=== PATIENT | male | born 1995 | race Caucasian/White ===

== ENCOUNTER 2020-12-20 14:16 | Inpatient (IN) | payer BC ==
[~2020-12-20] VITALS: Ht 175.3 cm; Wt 72.8 kg
[2020-12-20] VITALS (176 sets, daily range): BP systolic 125–126; BP diastolic 78–81; PULSE 98–143; TEMP 98.6–98.7; O2SAT 89–100
[2020-12-20 14:44] LABS: BASO # 0.1 (0.0-0.2); BASO % 0.3 % (0.0-2.0); GRAN % 84.8 % (42.2-75.2); HEMATOCRIT 45.1 % (42.0-52.0); HEMOGLOBIN 16.5 g/dl (13.5-18.0); LYMPH # 1.7 (1.2-3.4); MEAN CELL VOLUME 91 fl (80.0-100.0); MEAN CORPUSCULAR HEMOGLOBIN 33 pg (27.0-31.0); MEAN CORPUSCULAR HGB CONC 37 g/dl (33.0-37.0); MEAN PLATELET VOLUME 10.5 fl (7.4-10.4); MONO % 5.4 % (1.7-9.3); PLATELET COUNT 284 K/mm3 (130-400); RED BLOOD COUNT 4.97 M/mm3 (4.20-5.60); REDCELL DISTRIBUTION WIDTH-CV 11.7 % (11.5-14.5)
[2020-12-20 14:56] LABS: ALANINE AMINOTRANSFERASE 53 U/L (4-49); ALBUMIN 5.7 gm/dL (3.5-5.0); ALKALINE PHOSPHATASE 135 U/L (50-136); ANION GAP 27 mmol/L (7-16); AST,SGOT 35 U/L (15-37); BILIRUBIN,TOTAL 1.8 mg/dL (0.0-1.0); BLOOD UREA NITROGEN 33 mg/dL (9-20); CALCIUM 9.5 mg/dL (8.4-10.2); CARBON DIOXIDE 20 mmol/L (22-30); CREATININE, serum 1.37 (0.66-1.25); LIPASE 108 U/L (23-300); POTASSIUM 4.2 mmol/L (3.4-5.0); SODIUM 135 mmol/L (137-145); TOTAL PROTEIN 9.3 gm/dL (6.4-8.2)
[2020-12-20 15:12] LABS: CHLORIDE 88 mmol/L (98-107); GLUCOSE 544 mg/dL (74-106)
[2020-12-20 15:24] LABS: ACETONE,SERUM SMALL
[2020-12-20] MEDS ORDERED: TRESIBA FL200 UNIT/1 SQ (16:27)
[2020-12-20] MEDS ORDERED: NOVOLOG FLEX100 U/ML SQ (16:27)
--- NOTE | 2020-12-20 17:16 | NUR ---
RECEIVED REPORT FROM KIM CALIX IN ER. AWAITING ARRIVAL OF PT TO ICU 6.
--- NOTE | 2020-12-20 17:25 | NUR ---
PT ARRIVES TO ICU 6 VIA STRETCHER ON RA. PT TRANSFERS SELF TO ICU BED, STEADY GAIT NOTED. CALL LIGHT AND URINAL WITHIN REACH. VSS. SEE GTT FLOWSHEET.
[2020-12-20 17:29] LABS: MAGNESIUM 2.6 mg/dL (1.6-2.3); PHOSPHOROUS 5.2 mg/dL (2.5-4.5)
[2020-12-20 19:52] LABS: CALCIUM 8.7 mg/dL (8.4-10.2); CREATININE, serum 0.98 (0.66-1.25); POTASSIUM 3.3 mmol/L (3.4-5.0)
--- NOTE | 2020-12-20 20:00 | NUR ---
Assessment complete and charted. Patient having nausea. Obtained order from EM Carrero for zofran PRN Q4H. Denies needs at this time. Call light in reach.
[2020-12-20 21:49] LABS: CALCIUM 8.9 mg/dL (8.4-10.2); CREATININE, serum 0.98 (0.66-1.25); POTASSIUM 3.7 mmol/L (3.4-5.0)
[2020-12-20 23:29] LABS: CALCIUM 8.8 mg/dL (8.4-10.2); CREATININE, serum 0.95 (0.66-1.25); POTASSIUM 3.4 mmol/L (3.4-5.0)
--- NOTE | 2020-12-20 23:43 | NUR ---
Assessment complete and charted. Patient dry heaving during assessment causing tachycardia. Given PRN zofran. Pulse back to 93. Denies other needs. Call light in reach.
[2020-12-21] VITALS (378 sets, daily range): BP systolic 110–156; BP diastolic 62–100; PULSE 67–96; TEMP 97.5–98.6; O2SAT 89–100
[2020-12-21 01:38] LABS: CALCIUM 8.9 mg/dL (8.4-10.2); CREATININE, serum 0.99 (0.66-1.25); POTASSIUM 3.4 mmol/L (3.4-5.0)
[2020-12-21 01:39] LABS: COLLECTION METHOD CLEAN CATCH
[2020-12-21 01:47] LABS: MUCOUS Present /lpf; PH 6 (5-8); SQUAMOUS EPITHELIAL None Seen /hpf; URINE APPEARANCE Clear; URINE BACTERIA None Seen /hpf; URINE BILIRUBIN Negative (NEGATIVE); URINE BLOOD 1+ (NEGATIVE); URINE COLOR Yellow; URINE GLUCOSE 3+ (NEGATIVE); URINE KETONE 2+ (NEGATIVE); URINE LEUKOCYTE ESTERASE Negative (NEGATIVE); URINE NITRATE Negative (NEGATIVE); URINE PROTEIN(semi-quant) 1+ (NEGATIVE); URINE RBC 0-2 /hpf; URINE UROBILINOGEN Negative (NEGATIVE)
[2020-12-21 03:44] LABS: CALCIUM 8.8 mg/dL (8.4-10.2); CREATININE, serum 1.02 (0.66-1.25); POTASSIUM 3.5 mmol/L (3.4-5.0)
[2020-12-21 05:36] LABS: BASO # 0.1 (0.0-0.2); BASO % 0.3 % (0.0-2.0); EOS % 0.1 % (0-4.0); GRAN # 13.4 (1.4-6.5); GRAN % 79.9 % (42.2-75.2); HEMATOCRIT 40.7 % (42.0-52.0); HEMOGLOBIN 14.9 g/dl (13.5-18.0); MEAN CELL VOLUME 92 fl (80.0-100.0); MEAN CORPUSCULAR HEMOGLOBIN 34 pg (27.0-31.0); MEAN CORPUSCULAR HGB CONC 37 g/dl (33.0-37.0); MEAN PLATELET VOLUME 10.1 fl (7.4-10.4); MONO # 1.2 (0.1-0.6); MONO % 7.2 % (1.7-9.3); PLATELET COUNT 235 K/mm3 (130-400); RED BLOOD COUNT 4.44 M/mm3 (4.20-5.60); REDCELL DISTRIBUTION WIDTH-CV 11.7 % (11.5-14.5)
[2020-12-21 05:48] LABS: ALBUMIN 4.8 gm/dL (3.5-5.0); BILIRUBIN,TOTAL 1.3 mg/dL (0.0-1.0); CALCIUM 9.1 mg/dL (8.4-10.2); CREATININE, serum 0.99 (0.66-1.25); POTASSIUM 3.4 mmol/L (3.4-5.0); TOTAL PROTEIN 7.9 gm/dL (6.4-8.2)
--- NOTE | 2020-12-21 06:11 | NUR ---
Patient nauseated throughout night. Given PRN zofran and phenergan. Patient insulin gtt stopped at 0430 for a blood sugar of 80. Per Alise STRICKLAND given 5 units of levemir and continue D5 1/2 NS with 20meq of K+, allow patient to eat this AM. Patient attemping apple sauce. Denies other needs this AM. Call light in reach.
--- NOTE | 2020-12-21 07:00 | NUR ---
RECEIVED REPORT FROM KIM HUDSON. PT SLEEPING ON RA. VSS. CALL LIGHT WITHIN REACH.
--- NOTE | 2020-12-21 07:05 | NUR ---
Report given to KIM Rutledge
[2020-12-21 07:36] LABS: CALCIUM 8.4 mg/dL (8.4-10.2); CREATININE, serum 0.94 (0.66-1.25); POTASSIUM 3.7 mmol/L (3.4-5.0)
[2020-12-21 10:06] LABS: CALCIUM 8.4 mg/dL (8.4-10.2); CREATININE, serum 1.09 (0.66-1.25); POTASSIUM 3.7 mmol/L (3.4-5.0)
[2020-12-21 11:46] LABS: CALCIUM 8.4 mg/dL (8.4-10.2); CREATININE, serum 0.98 (0.66-1.25); POTASSIUM 4.1 mmol/L (3.4-5.0)
--- NOTE | 2020-12-21 11:49 | NUR ---
Body Sander met with patient to discuss discharge planning. Patient lives in [place] with a roommate and sees Dr. Vanessa Casas for primary care. Patient reports he last saw Dr. Casas in October. Patient is employed at [employer] and obtains his medications from the [facility]. Patient reports that he can afford his medications at this time. Patient does not use any DME other than his diabetic testing equipment. Patient reports independence with ADLS and plans to return home upon discharge. Patient does not have Advance Directives. Patient is not and his legal next of kin would be his parents, Jade (ph#[phone]) and Doug, who live in [place]. Discharge Plan: Home
[2020-12-21 13:34] LABS: CALCIUM 8.7 mg/dL (8.4-10.2); CREATININE, serum 0.94 (0.66-1.25); POTASSIUM 3.6 mmol/L (3.4-5.0)
--- NOTE | 2020-12-21 18:15 | NUR ---
REPORT GIVEN TO KIM SAUCEDA. PT TRANSFERRED VIA WC TO [address] ON [address]. GF ACCOMPANYING PT. ALL PERSONAL BELONGINGS SENT WITH PT.
--- NOTE | 2020-12-21 21:49 | NUR ---
Patient assessed around 1950. Patient was complaining of nausea, and given PRN Phenergan. Denies pain and and discomfort. Peripheral INT to right AC. Site without redness, warmth, swelling, and pain. Denies SOB and dyspnea. LS CTA. Respirations even and unlabored. HRR. Telemetry: sinus tachycardia. Capillary refill less than 3 seconds. Non-tenting skin turgor. BSAx4. Abdomen soft and non-tender. No edema. Voices no further questions, needs, or concerns at this time. Resting in bed with call light within reach.
[2020-12-22 04:05] VITALS: BP 116/76; PULSE 81; TEMP 98.2
--- NOTE | 2020-12-22 05:47 | NUR ---
Patient had one episode of emesis this shift, and had received PRN Phenergan. No further emesis, and has denied needing anything for nausea since. Patient has been resting in bed with call light within reach. Voices no questions, needs, or concerns at this time. Resting in bed with call light within reach.
[2020-12-22 06:50] LABS: BASO # 0.1 (0.0-0.2); BASO % 0.8 % (0.0-2.0); EOS % 0.1 % (0-4.0); GRAN % 64.3 % (42.2-75.2); HEMATOCRIT 38.4 % (42.0-52.0); HEMOGLOBIN 13.4 g/dl (13.5-18.0); LYMPH # 2.1 (1.2-3.4); LYMPH % 27.2 % (20.0-51.0); MEAN CELL VOLUME 95 fl (80.0-100.0); MEAN CORPUSCULAR HEMOGLOBIN 33 pg (27.0-31.0); MEAN CORPUSCULAR HGB CONC 35 g/dl (33.0-37.0); MEAN PLATELET VOLUME 10.7 fl (7.4-10.4); MONO # 0.6 (0.1-0.6); MONO % 7.3 % (1.7-9.3); PLATELET COUNT 176 K/mm3 (130-400); RED BLOOD COUNT 4.04 M/mm3 (4.20-5.60); REDCELL DISTRIBUTION WIDTH-CV 11.4 % (11.5-14.5)
[2020-12-22 07:09] LABS: CALCIUM 8.8 mg/dL (8.4-10.2); CREATININE, serum 0.81 (0.66-1.25); POTASSIUM 3.2 mmol/L (3.4-5.0)
[2020-12-22 08:00] VITALS: BP 137/82; PULSE 88; TEMP 97.7
--- NOTE | 2020-12-22 09:42 | NUR ---
Initial visit; Patient thanked Rotor Coil Taper for stopping. Rotor Coil Taper listened and offered God's blessings that his health continue to improve. Rotor Coil Taper wished Chucky a blessed day.
[2020-12-22 09:53] LABS: ALBUMIN 4.1 gm/dL (3.5-5.0); BILIRUBIN,TOTAL 1.5 mg/dL (0.0-1.0); TOTAL PROTEIN 6.8 gm/dL (6.4-8.2)
--- NOTE | 2020-12-22 10:30 | NUR ---
Patient has continued to have nausea this am. Nicki given. Discussed how we use the insulin sliding scale to decide the dose. Patient stated that they take 8-10 units average with each meal. Patient denies pain at this time. No other changes at this time. Call light within reach.
[2020-12-22 12:00] VITALS: BP 131/71; PULSE 87; TEMP 97.9
[2020-12-22] MEDS ORDERED: ZOFRAN ODT4 MG PO (14:09)
--- NOTE | 2020-12-22 14:54 | NUR ---
The PA notified THERON that the patient is interested in having a referral sent to [facility] for outpatient mental health services. THERON contacted admissions at [facility] twice and left voicemails to give them a referral on the patient. THERON met with the patient to update and provided him with [place]'s list of Mental Health Resources in the community, which includes [facility]'s phone number. The patient provided THERON with his phone number [phone]. THERON encouraged the patient to give [facility] a call if he does not hear from [facility] about an appointment. The patient verbalized understanding and was in agreement to the plan. The patient is to discharge back home with his roommate today, 12/22. No additional needs at this time.
[2020-12-22 16:00] VITALS: BP 127/74; PULSE 80; TEMP 98.3
--- NOTE | 2020-12-22 16:30 | NUR ---
Patient is discharging home. Discharge instructions discussed with patient. No quesitons verbalized. INT discontinued. Explained that he can call [facility] tomorrow afternoon if they don't call him because our socail worker left a message with them for [facility] for an appointment. Patient has an endocrinology appointment scheduled for next week, explained if he continues to have N/V to make an appointment with his primary doctor. No other changes at this time. Call light within reach.
== END 2020-12-22 16:30 | disposition home or self-care (01) | DRG 638 ==
LOC: COL.ER 14:16 → ICU 15:55 → SURG 12-21 18:30
PROVIDERS: Emergency Medicine; Physician Assistant; ADMIT Student in an Organized Health Care Education/Training Program
DX: E10.10 Type 1 diabetes mellitus with ketoacidosis without coma (principal); N17.9 Acute kidney failure, unspecified; F32.9 Major depressive disorder, single episode, unspecified; R19.7 Diarrhea, unspecified; R00.0 Tachycardia, unspecified; E87.6 Hypokalemia; D72.829 Elevated white blood cell count, unspecified
CPT/HCPCS: 99223-AI; 99233-AI; 99239; J1644; J1815; J2405; J2550; J3480; J7030

== ENCOUNTER 2023-11-15 18:15 | Emergency (ER) | payer OTHER ==
[~2023-11-15] VITALS: Ht 175.3 cm; Wt 77.3 kg
[~2023-11-15 18:15] MED LIST: NOVOLOG FLEX100 U/ML SQ; TRESIBA FL200 UNIT/1 SQ; ZOFRAN ODT4 MG PO
[2023-11-15 18:27] VITALS: TEMP 98.3
[2023-11-15 19:51] LABS: BASO % 0.3 % (0.0-2.0); GRAN % 87.1 % (42.2-75.2); HEMOGLOBIN 12.9 g/dl (13.5-18.0); LYMPH % 7.5 % (20.0-51.0); MEAN CELL VOLUME 92 fl (80.0-100.0); MEAN CORPUSCULAR HEMOGLOBIN 33 pg (27-31); MEAN CORPUSCULAR HGB CONC 36 g/dl (33.0-37.0); MEAN PLATELET VOLUME 10.4 fl (7.4-10.4); MONO # 0.6 K/mm3 (0.1-0.6); MONO % 4.9 % (1.7-9.3); PLATELET COUNT 215 K/mm3 (130-400); RED BLOOD COUNT 3.91 M/mm3 (4.20-5.60); REDCELL DISTRIBUTION WIDTH-CV 11.9 % (11.5-14.5)
[2023-11-15 19:54] LABS: HEMATOCRIT 35.8 % (42.0-52.0)
[2023-11-15 20:03] LABS: ACETONE,SERUM NEGATIVE
[2023-11-15 20:05] LABS: COLLECTION METHOD CLEAN CATCH
[2023-11-15 20:10] LABS: ALANINE AMINOTRANSFERASE 16 U/L (0-55); ALBUMIN 4.6 g/dL (3.5-5.0); ALKALINE PHOSPHATASE 98 U/L (40-150); ANION GAP 12 mmol/L (7-16); AST,SGOT 16 U/L (5-34); BLOOD UREA NITROGEN 27 mg/dL (9-21); CALCIUM 9.6 mg/dL (8.4-10.2); CHLORIDE 100 mEq/L (98-107); GLUCOSE 152 mg/dL (70-99); POTASSIUM 3.7 mEq/L (3.5-4.5); SODIUM 139 mEq/L (136-145); TOTAL PROTEIN 7.7 g/dl (6.2-8.1)
[2023-11-15] MEDS ORDERED: NS 1,000 ML IV ONE (20:15)
[2023-11-15] MEDS ORDERED: Ondansetron 4 MG/2 ML VIAL IV ONE (20:15)
[2023-11-15 20:22] LABS: URINE APPEARANCE CLEAR (CLEAR/HAZY); URINE BLOOD 1+ (NEGATIVE); URINE COLOR YELLOW (YELLOW); URINE GLUCOSE NEGATIVE (NEGATIVE); URINE KETONE 1+ (NEGATIVE); URINE NITRATE NEGATIVE (NEGATIVE); URINE PROTEIN(semi-quant) 3+ (NEGATIVE)
[2023-11-15] MEDS ORDERED: droPERidol 2.5 MG/ML 2 ML VIAL IV ONE (21:15)
[2023-11-15] MEDS ORDERED: Mag/Al Hydrox/Simeth Susp 30 ML CUP PO ONE (22:15)
[2023-11-15] MEDS ORDERED: ZOFRAN ODT4 MG PO (22:25)
[2023-11-15] MEDS ORDERED: Home Ondansetron ODT 4 MG #2 ODT/PACK PO ONE (22:30)
[2023-11-15 22:37] VITALS: BP 151/95; PULSE 80
== END 2023-11-15 22:37 | disposition home or self-care (01) ==
LOC: COL.ER 18:15
PROVIDERS: Nurse Practitioner
DX: R11.2 Nausea with vomiting, unspecified (principal); E10.9 Type 1 diabetes mellitus without complications; Z87.891 Personal history of nicotine dependence
CPT/HCPCS: J1790; J2405; J7030